=== PATIENT | male | born 1975 | race African-American/Black ===

== ENCOUNTER 2019-07-05 09:22 | Emergency (ER) | payer MEDICARE, OTHER, SELFPAY ==
[2019-07-05 09:43] VITALS: BP 145/95; PULSE 73; RESP 16; TEMP 36.3; O2SAT 98; BMI 27.8
--- NOTE | 2019-07-05 09:54 | ED_ITS ---
HPI - Fall General Chief Complaint: Fall Stated Complaint: Leg came out from under him.did fall to ground Time Seen by Provider: 07/05/19 09:40 Source: patient Mode of arrival: Wheelchair Limitations: no limitations History of Present Illness HPI Narrative: Patient is a 44-year-old male who has had 2 prior hip replacements in the past. 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 These hip replacements are not new. He was walking with a cane. Walking with a cane is not new for him. He stated that he was walking and transitioning from different surface is when he felt like his left leg went out from underneath him. Since then he has had pain in his left hip and also his lower back. No knee pain or ankle pain. Related Data Home Medications Medication Instructions Recorded Confirmed amlodipine 5 mg PO DAILY 07/05/19 07/05/19 duloxetine 30 mg PO DAILY 07/05/19 07/05/19 propranolol [Inderal LA] 160 mg PO DAILY 07/05/19 07/05/19 rizatriptan [Maxalt] 10 mg PO PRN PRN 07/05/19 tamsulosin 0.4 mg PO DAILY 07/05/19 07/05/19 Allergies Allergy/AdvReac Type Severity Reaction Status Date / Time No Known Drug Allergies Allergy Verified 07/05/19 09:43 Review of Systems Constitutional Constitutional: Denies fever(s) Cardiovascular Cardiovascular: Denies chest pain and Denies dyspnea Respiratory Respiratory: Denies dyspnea Gastrointestinal Gastrointestinal: Denies abdominal pain Musculoskeletal Comments: Left hip pain Integumentary/Breasts Skin/Breast: Denies rash Neurologic Neurologic: Denies behavioral changes Psychiatric Psychiatric: Denies behavioral changes Hematologic/Lymphatic Hematologic/Lymphatic: Denies easy bleeding and Denies easy bruising Patient History Surgical History Status post bilateral total hip replacement (Acute) Social History lives independently: Yes Exam Initial Vital Signs Initial Vital Signs: Vital Signs Temperature 97.4 F L 07/05/19 09:43 Pulse Rate 73 07/05/19 09:43 Respiratory Rate 16 07/05/19 09:43 Blood Pressure 145/95 H 07/05/19 09:43 Pulse Oximetry 98 07/05/19 09:43 HENLA Head: normal to inspection and normocephalic Resp Effort & Inspection: normal respiratory effort Skin Lesions: no lesions Rashes: no rashes Neuro General: alert, awake and oriented x3 Cognition: normal cognition Speech: speech normal Extrem Other: Left ankle and left knee unremarkable. He does have a knee brace on his left knee. Does have tenderness to palpation around the left hip and with movement. Scores GCS [place] coma scale eye opening: Spontaneous [place] coma scale verbal response: Orientated Brian coma scale motor response: Obey commands Brian coma scale total score: 15 Course Orders Ordered: ED Orders 07/05/19 09:53 XR hip w pel if done LT 2V Stat Discontinued Medications Ketorolac Tromethamine (Toradol) 30 mg IM NOW ONE Stop: 07/05/19 10:49 Vital Signs Vital signs: Vital Signs - 8 hr 07/05/19 09:43 07/05/19 10:30 Temperature 97.4 F L Pulse Rate 73 81 Respiratory Rate 16 16 Blood Pressure 145/95 H Blood Pressure [Left Arm] 136/88 Pulse Oximetry 98 99 MDM - Fall Imaging Data Extremity x-ray #1: Radiologist's Impression: [address] [address] XRay Report Signed Patient: Johnathon Garcia JMR#: [id number] : 1975Acct:[id number] Age/Sex: 44 / MDate of Service: 07/05/19 Loc: ED Accession Number: [id number] Procedure: XR hip w pel if done LT 2V Ordering Provider: Jefferson Queen D.O. PROCEDURE: XR HIP W PEL IF DONE LT 2V INDICATIONS: Pain after fall history of replacement TECHNIQUE: AP pelvis x2 with lateral view(s) of the left hip(s). COMPARISON: MR, MR PELVIS WO CON, 11/03/2015, 20:29. FINDINGS: Bones: No fractures or dislocations. Bilateral total hip arthroplasties. No periprosthetic lucency to suggest loosening or infection. Small areas of heterotopic calcification at the surgical sites. Pelvic ring appears intact. Degenerative change at the pubic symphysis. No suspicious bony lesions. Soft tissues: The visualized bowel gas pattern is normal. No suspicious soft tissue calcifications. IMPRESSION: No acute osseous abnormality. Bilateral hip total arthroplasties appear normal. Dictated by: Mando Khan M.D. on 07/05/2019 at 10:31 Approved by: Mando Khan M.D. on 07/05/2019 at 10:34 [facility] Narrative Medical decision making narrative: X-ray shows no acute fractures. Patient states he has had Toradol in the past and that seems to have helped his symptoms. No indication for emergent orthopedic referral. Hold on further workup for now. Patient was given return precautions and follow-up instructions. He expressed understanding and agreement plan. Discharge Plan Departure Patient Disposition: Home Clinical Impression: Acute pain of left hip Instructions: How to Prevent Falls Activity Restrictions/Additional Instructions: Use your crutches or cane as needed. Continue all of your medications as directed. Contact your primary provider for further workup. Return to the emergency department for new or worsening symptoms Prescriptions: No Action propranolol [Inderal LA] 160 mg capsule,extended release 24 hr 160 mg PO DAILY RF: 0 rizatriptan [Maxalt] 10 mg tablet 10 mg PO PRN PRN (Reason: Migraine Headache) RF: 0 amlodipine 5 mg tablet 5 mg PO DAILY RF: 0 tamsulosin 0.4 mg capsule 0.4 mg PO DAILY RF: 0 duloxetine 30 mg capsule,delayed release(DR/EC) 30 mg PO DAILY RF: 0
[2019-07-05 10:30] VITALS: BP 136/88; PULSE 81; RESP 16; O2SAT 99
[2019-07-05] MEDS: KETOROLAC 60 MG/2 ML VIAL 30 MG IM (11:28)
[2019-07-05 11:41] VITALS: BP 132/80; PULSE 83; O2SAT 98
== END 2019-07-05 11:42 | disposition home or self-care (01) ==
PROVIDERS: Emergency Provider Emergency Medicine
DX: M25.552 Pain in left hip (principal); Z96.649 Presence of unspecified artificial hip joint
CPT/HCPCS: 73502; 96372; 99283; J1885